=== PATIENT | male | born 1990 | race Hispanic/Latino ===

== ENCOUNTER 2018-10-29 02:06 | Emergency (ER) | payer SELFPAY ==
[2018-10-29 02:15] VITALS: BP 145/93; PULSE 94; TEMP 98.6; O2SAT 95
[2018-10-29] MEDS ORDERED: Lidocaine 2% MPF (5 ml) Inj ONE (02:48)
--- NOTE | 2018-10-29 03:08 | C.PDOC ---
History Of Present Illness 27 year old male presents with mass to the right buttock for the past 3 days now with pain. Denies fever, drainage or Hx of similar c/o. Time Seen by Provider: 10/29/18 02:20 Chief Complaint (Nursing): Abnormal Skin Integrity History Per: Patient History/Exam Limitations: no limitations Onset/Duration Of Symptoms: Days (3) Current Symptoms Are (Timing): Still Present Location Of Injury: Right: Buttock (Mass), Posterior: Buttock Quality Of Symptoms: Painful Recent travel outside of the [place]: No Past Medical History Reviewed: Historical Data, Nursing Documentation, Vital Signs Vital Signs: Last Vital Signs Temp 98.6 F 10/29/18 02:14 Pulse 94 H 10/29/18 02:14 Resp BP 145/93 H 10/29/18 02:14 Pulse Ox 95 10/29/18 02:14 Primary Care Provider: FAMILY PROVIDER,NO Family History: States: Unknown Family Hx - Social History Hx Alcohol Use: Yes Hx Substance Use: Yes - Immunization History Hx Tetanus Toxoid Vaccination: No Hx Influenza Vaccination: No Hx Pneumococcal Vaccination: No Review Of Systems Constitutional: Negative for: Fever, Chills Skin: Positive for: Other (Mass to right buttock) Physical Exam - Physical Exam Appears: Non-toxic Skin: Warm Head: Atraumatic, Normacephalic Eye(s): bilateral: Normal Inspection Gastrointestinal/Abdominal: Normal Exam, Soft, No Tenderness Rectal: Other (Large area of induration with tenderness, swelling, and fluctuant center to right buttock. No perianal involvement.) Neurological/Psych: Oriented x3, Normal Speech ED Course And Treatment O2 Sat by Pulse Oximetry: 95 (Room air) Pulse Ox Interpretation: Normal Progress Note: Patient tolerated laceration repair without any difficulty, will discharge home on antibiotics with instructions to follow up for wound check. - Incision & Drainage Of Abscess Anesthesia: Lidocaine 2% Prep Used: Sterile Water, Betadine Procedure: Incised W/Scalpel Blade#: (15), Drained Pus, Irrigated Cavity W/Saline, Probed To Break Up Loculations, Packed W/Gauze Disposition Counseled Patient/Family Regarding: Diagnosis, Need For Followup, Rx Given - Disposition Referrals: Tyler Dumont MD [Emergency Provider] - Disposition: HOME/ ROUTINE Disposition Time: 03:06 Condition: STABLE Additional Instructions: Wound check in 2 days Take medications as directed Return to ER if severe pain, swelling or worse Prescriptions: Cephalexin [Keflex] 500 mg PO Q6 #28 capsule Ibuprofen [Motrin Tab] 800 mg PO QID #20 tab Sulfamethoxazole/Trimethoprim [Bactrim DS 800 mg-160 mg] 1 tab PO BID #14 tab Instructions: Abscess Incision and Drainage Forms: [employer] [facility] ([place]) - Clinical Impression Clinical Impression: Abscess of buttock, right - PA / [facility] / Resident Statement MD/DO has reviewed & agrees with the documentation as recorded. - Scribe Statement The provider has reviewed the documentation as recorded by the Scribe Obinna Jones All medical record entries made by the Silvinaibbeth were at my direction and personally dictated by me. I have reviewed the chart and agree that the record accurately reflects my personal performance of the history, physical exam, medical decision making, and the department course for this patient. I have also personally directed, reviewed, and agree with the discharge instructions and disposition.
== END 2018-10-29 03:17 | disposition home or self-care (01) ==
LOC: C.ER 02:06
DX: L02.31 Cutaneous abscess of buttock (principal)